=== PATIENT | female | born 1985 | race African-American/Black ===

== ENCOUNTER 2018-02-22 23:55 | Emergency (ER) | payer MEDICAID ==
[~2018-02-22] VITALS: Ht 170.2 cm; Wt 107.8 kg
[2018-02-23] MEDS ORDERED: KETOROLAC 60MG/2ML VIAL IM ONE (05:15)
[2018-02-23] MEDS ORDERED: SODIUM CHLORIDE 0.9% 1,000 ML IV ONE (07:46)
[2018-02-23] MEDS ORDERED: ONDANSETRON HCL 4MG/2ML VIAL IV STA (07:46)
[2018-02-23 08:08] LABS: BASOPHILS % 0.7 % (0.0-2.0); EOSINOPHILS % 1.7 % (0.0-5.0); HEMATOCRIT. 37.9 % (36.0-48.0); HEMOGLOBIN. 12.6 g/dL (12.0-16.0); LYMPHOCYTES % 36.3 % (20.0-50.0); MEAN CORPUSCULAR HEMOGLOBIN 29.5 pg (28.0-32.0); MEAN CORPUSCULAR VOLUME 88.7 fL (81.0-99.0); MEAN PLATELET VOLUME 7.2 fl (7.4-10.4); MONOCYTES % 7.8 % (2.0-8.0); NEUTROPHILS % 53.5 % (40.0-76.0); PLATELET 363 x1000/uL (130-400); RED BLOOD CELL COUNT 4.28 mill/uL (4.2-5.4); RED CELL DISTRIBUTION WIDTH 13.8 % (11.6-14.6)
[2018-02-23 08:12] LABS: CHLORIDE 109 mEq/L (98-107)
[2018-02-23 08:17] LABS: ETHANOL BLOOD < 10 mg/dL
[2018-02-23 11:26] LABS: CLARITY URINE TURBID (CLEAR); COLOR URINE YELLOW (YELLOW); KETONES URINE TRACE (NEGATIVE); LEUKOCYTE ESTERASE URINE 3+ (NEGATIVE); NITRITE URINE NEGATIVE (NEGATIVE); OCCULT BLOOD URINE 1+ (NEGATIVE); PROTEIN URINE TRACE (NEGATIVE); SPECIFIC GRAVITY URINE 1.016 (1.005-1.030)
[2018-02-23 12:34] VITALS: BP 138/99
== END 2018-02-23 12:43 | disposition home or self-care (01) ==
LOC: ER 23:55
DX: N39.0 Urinary tract infection, site not specified (principal); M60.9 Myositis, unspecified; M79.1 Myalgia; E11.9 Type 2 diabetes mellitus without complications; J45.909 Unspecified asthma, uncomplicated
CPT/HCPCS: 36415; 71045; 80053; 81003; 81025; 83690; 85025; 87086; 96361; 96372; 96374; 99285; G0482; J1885; J2405; J7030; Z7610

== ENCOUNTER 2018-11-03 16:04 | Emergency (ER) | payer MEDICAID ==
[~2018-11-03] VITALS: Ht 165.1 cm; Wt 105.0 kg
[2018-11-03] MEDS ORDERED: ZIPRASIDONE MESYLATE 20MG/VIAL IM ONE (19:15)
[2018-11-03] MEDS ORDERED: DIPHENHYDRAMINE 50MG/ML VIAL IM ONE (19:15)
[2018-11-03] MEDS ORDERED: LORAZEPAM 2MG/ML CPJ IM ONE (19:15)
[2018-11-03 19:43] LABS: BASOPHILS % 0.9 % (0.0-2.0); EOSINOPHILS % 2.6 % (0.0-5.0); HEMATOCRIT. 40.7 % (36.0-48.0); HEMOGLOBIN. 13.2 g/dL (12.0-16.0); LYMPHOCYTES % 39.7 % (20.0-50.0); MEAN CORPUSCULAR HEMOGLOBIN 29.2 pg (28.0-32.0); MEAN CORPUSCULAR VOLUME 89.8 fL (81.0-99.0); MEAN PLATELET VOLUME 7.8 fl (7.4-10.4); MONOCYTES % 7.5 % (2.0-8.0); NEUTROPHILS % 49.3 % (40.0-76.0); PLATELET 309 x1000/uL (130-400); RED BLOOD CELL COUNT 4.53 mill/uL (4.2-5.4); RED CELL DISTRIBUTION WIDTH 14.4 % (11.6-14.6)
[2018-11-03 19:47] LABS: CHLORIDE 108 mEq/L (98-107)
[2018-11-03 19:49] LABS: HCG SCREEN NEGATIVE
[2018-11-03 19:55] LABS: ETHANOL BLOOD < 10 mg/dL
[2018-11-04 11:43] VITALS: BP 129/80
== END 2018-11-04 14:30 | disposition home or self-care (01) ==
LOC: ER 16:04
DX: R45.851 Suicidal ideations (principal); E11.9 Type 2 diabetes mellitus without complications; I10 Essential (primary) hypertension
CPT/HCPCS: 36415; 80053; 80307; 80329; 84703; 85025; 96372; 99285; G0482; J1200; J2060; J3486; Z7610

== ENCOUNTER 2019-12-29 15:04 | Emergency (ER) | payer MEDICAID ==
[~2019-12-29] VITALS: Ht 172.7 cm; Wt 91.0 kg
[2019-12-29] MEDS ORDERED: ACETAMINOPHEN 325MG TABLET PO STA (15:59)
[2019-12-29 16:00] VITALS: BP 127/79
[2019-12-29 17:25] LABS: CLARITY URINE CLEAR (CLEAR); COLOR URINE YELLOW (YELLOW); KETONES URINE NEGATIVE (NEGATIVE); LEUKOCYTE ESTERASE URINE TRACE (NEGATIVE); NITRITE URINE NEGATIVE (NEGATIVE); OCCULT BLOOD URINE NEGATIVE (NEGATIVE); PROTEIN URINE NEGATIVE (NEGATIVE)
== END 2019-12-29 17:51 | disposition left against medical advice (07) ==
LOC: ER 15:04
DX: S30.1XXA Contusion of abdominal wall, initial encounter (principal); S20.219A Contusion of unspecified front wall of thorax, initial encounter; Y08.89XA Assault by other specified means, initial encounter; Y93.89 Activity, other specified; Y92.89 Other specified places as the place of occurrence of the external cause; Y99.8 Other external cause status; E11.9 Type 2 diabetes mellitus without complications; I10 Essential (primary) hypertension
CPT/HCPCS: 81003; 81025; 99283

== ENCOUNTER 2020-01-15 13:55 | Emergency (ER) | payer MEDICAID ==
[~2020-01-15] VITALS: Ht 162.6 cm; Wt 100.0 kg
[2020-01-15] MEDS ORDERED: FAMOTIDINE 20MG/2ML VIAL IV STA (15:28)
[2020-01-15] MEDS ORDERED: SODIUM CHLORIDE 0.9% 1,000 ML IV ONE (15:28)
[2020-01-15] MEDS ORDERED: ONDANSETRON HCL 4MG/2ML INJ IV STA (15:28)
[2020-01-15 16:01] LABS: CLARITY URINE CLOUDY (CLEAR); COLOR URINE DARK YELLOW (YELLOW); KETONES URINE 2+ (NEGATIVE); LEUKOCYTE ESTERASE URINE 1+ (NEGATIVE); NITRITE URINE POSITIVE (NEGATIVE); OCCULT BLOOD URINE 3+ (NEGATIVE); PROTEIN URINE 1+ (NEGATIVE); SPECIFIC GRAVITY URINE 1.031 (1.005-1.030)
[2020-01-15 16:02] LABS: CHLORIDE 108 mEq/L (98-107)
[2020-01-15 16:05] LABS: PROTHROMBIN TIME 11.2 sec (9.6-11.0)
[2020-01-15 16:06] LABS: ETHANOL BLOOD < 10 mg/dL
[2020-01-15 16:12] LABS: *AMPHETAMINES SCREEN URINE NEGATIVE (NEGATIVE)
[2020-01-15 16:13] LABS: B-HCG QUANTITATIVE < 1 mIU/mL (<3)
[2020-01-15 16:14] LABS: *BARBITURATES SCREEN URINE NEGATIVE (NEGATIVE); *BENZODIAZEPINES SCREEN URINE NEGATIVE (NEGATIVE); *COCAINE SCREEN URINE NEGATIVE (NEGATIVE); CANNABINOID URINE SCREEN NEGATIVE (NEGATIVE); METHADONE URINE SCREEN NEGATIVE (NEGATIVE); OPIATES URINE SCREEN NEGATIVE (NEGATIVE); PHENCYCLIDINE URINE SCREEN NEGATIVE (NEGATIVE)
[2020-01-15 17:17] LABS: BASOPHILS % 0.5 % (0.0-2.0); EOSINOPHILS % 0.8 % (0.0-5.0); HEMATOCRIT. 37.9 % (36.0-48.0); HEMOGLOBIN. 12.5 g/dL (12.0-16.0); MEAN CORPUSCULAR HEMOGLOBIN 29.5 pg (28.0-32.0); MEAN CORPUSCULAR VOLUME 89.4 fL (81.0-99.0); MEAN PLATELET VOLUME 7.9 fl (7.4-10.4); NEUTROPHILS % 57.7 % (40.0-76.0); PLATELET 265 x1000/uL (130-400); RED BLOOD CELL COUNT 4.23 mill/uL (4.2-5.4); RED CELL DISTRIBUTION WIDTH 14.4 % (11.6-14.6)
[2020-01-15 18:09] VITALS: BP 125/75
== END 2020-01-15 18:13 | disposition home or self-care (01) ==
LOC: ER 13:55
DX: O03.9 Complete or unspecified spontaneous abortion without complication (principal); O23.40 Unspecified infection of urinary tract in pregnancy, unspecified trimester; O24.919 Unspecified diabetes mellitus in pregnancy, unspecified trimester; O16.9 Unspecified maternal hypertension, unspecified trimester; Z3A.00 Weeks of gestation of pregnancy not specified
CPT/HCPCS: 36415; 76705; 76830; 76856; 80053; 80305; 80320; 81003; 83690; 84702; 85025; 85610; 86850; 86900; 86901; 87077; 87086; 87186; 96374; 96375; 99285; J2405; J3490; J7030; G0480

== ENCOUNTER 2020-01-30 10:45 | Emergency (ER) | payer MEDICAID ==
[~2020-01-30] VITALS: Ht 172.7 cm; Wt 100.0 kg
[2020-01-30 14:59] VITALS: BP 127/88
== END 2020-01-30 15:22 | disposition home or self-care (01) ==
LOC: ER 10:45
DX: R10.9 Unspecified abdominal pain (principal); Z98.51 Tubal ligation status; Z98.890 Other specified postprocedural states
CPT/HCPCS: 99283

== ENCOUNTER 2021-01-14 12:54 | Emergency (ER) | payer MEDICAID ==
[~2021-01-14] VITALS: Ht 175.3 cm; Wt 100.0 kg
[2021-01-14] MEDS ORDERED: ONDANSETRON HCL 4MG/2ML INJ IV STA (13:25)
[2021-01-14] MEDS ORDERED: MORPHINE SULFATE 4 MG/ML CPJ (NOT FOR IM USE) IV STA (13:25)
[2021-01-14] MEDS ORDERED: PIPERACILLIN/TAZOBACTAM 3.375GM/50ML PREMIX IV ONE (13:30)
[2021-01-14] MEDS ORDERED: TETANUS, DIPHTHERIA, PERTUSSIS VAC/PF 0.5ML (>7YR OLD) IM ONE (13:30)
[2021-01-14] MEDS ORDERED: BACITRACIN ZINC OINT UDPKT TOP ONE (13:30)
[2021-01-14] MEDS ORDERED: PIPERACILLIN/TAZ 3.375G PREMIX 50 ML IV NR (13:45)
[2021-01-14 14:20] LABS: BASOPHILS % 1.1 % (0.0-2.0); EOSINOPHILS % 0.4 % (0.0-5.0); HEMATOCRIT. 33.8 % (36.0-48.0); HEMOGLOBIN. 11.2 g/dL (12.0-16.0); LYMPHOCYTES % 20.2 % (20.0-50.0); MEAN CORPUSCULAR HEMOGLOBIN 29.2 pg (28.0-32.0); MEAN CORPUSCULAR VOLUME 88.3 fL (81.0-99.0); MEAN PLATELET VOLUME 8.6 fl (7.4-10.4); MONOCYTES % 6.5 % (2.0-8.0); NEUTROPHILS % 71.8 % (40.0-76.0); PLATELET 381 x1000/uL (130-400); RED BLOOD CELL COUNT 3.82 mill/uL (4.2-5.4); RED CELL DISTRIBUTION WIDTH 15.1 % (11.6-14.6)
[2021-01-14 14:26] LABS: CHLORIDE 114 mEq/L (98-107)
[2021-01-14] MEDS ORDERED: ACETAMINOPHEN 325MG TABLET PO ONE (14:30)
[2021-01-14] MEDS ORDERED: AMOX1TAB16 MT (17:08)
[2021-01-14] MEDS ORDERED: BO1 TP (17:09)
[2021-01-14 18:30] VITALS: BP 133/81
== END 2021-01-14 18:35 | disposition left against medical advice (07) ==
LOC: ER 12:54
DX: S91.352A Open bite, left foot, initial encounter (principal); L03.116 Cellulitis of left lower limb; I10 Essential (primary) hypertension; J45.909 Unspecified asthma, uncomplicated; Z88.6 Allergy status to analgesic agent; W54.0XXA Bitten by dog, initial encounter; Y93.89 Activity, other specified; Y92.018 Other place in single-family (private) house as the place of occurrence of the external cause
CPT/HCPCS: 36415; 73630; 80053; 85025; 85610; 90471; 90715; 96374; 99284; J2543